=== PATIENT | female | born 1935 | race Caucasian/White ===

== ENCOUNTER 2017-03-06 20:11 | Emergency (ER) | payer MEDICARE, BC ==
--- NOTE | 2017-03-06 20:39 | ERNOTE ---
Medical Problem HPI - General Chief Complaint: General Assessment Time Seen by Provider: 03/06/17 20:38 Source: patient, family - Immun/Allergies/Home Medications Immunizations: IMMUNIZATION HX Immunizations Up to Date Yes History of Influenza Vaccine No Hx Pneumococcal Vaccination No Allergies/Adverse Reactions: Allergies cisapride monohydrate [From Propulsid] Allergy (Unknown, Verified 05/22/16 22:37 ) codeine Allergy (Unknown, Verified 05/22/16 22:37) diphenhydramine HCl [From Benadryl] Allergy (Unknown, Verified 05/22/16 22:37) fish oil Allergy (Unknown, Verified 05/22/16 22:37) ketorolac tromethamine [From Toradol] Allergy (Unknown, Verified 05/22/16 22:37) Other "muscles hurt really bad" meperidine HCl [From Demerol] Allergy (Unknown, Verified 05/22/16 22:37) metoclopramide HCl [From Reglan] Allergy (Unknown, Verified 05/22/16 22:37) metoprolol Allergy (Unknown, Verified 05/22/16 22:37) omeprazole [From Prilosec] Allergy (Unknown, Verified 05/22/16 22:37) omeprazole magnesium [From Prilosec] Allergy (Unknown, Verified 05/22/16 22:37) prochlorperazine edisylate [From Compazine] Allergy (Unknown, Verified 05/22/16 22:37) prochlorperazine maleate [From Compazine] Allergy (Unknown, Verified 05/22/16 22 :37) sumatriptan [From Imitrex] Allergy (Unknown, Verified 05/22/16 22:37) sumatriptan succinate [From Imitrex] Allergy (Unknown, Verified 05/22/16 22:37) ondansetron HCl [From Zofran (as hydrochloride)] Allergy (Verified 05/22/16 22: 37) Nausea lisinopril Adverse Reaction (Mild, Verified 05/22/16 22:37) COUGH Home Medications: HOME MEDICATIONS ALPRAZolam [Xanax] 0.25 mg PO BID PRN 09/05/15 [Last Taken Unknown] Clonidine HCl [Catapres] 0.1 mg PO BID 09/05/15 [Last Taken Unknown] Polyethylene Glycol 3350 [Miralax] 17 gm PO Q2D 09/05/15 [Last Taken Unknown] fentaNYL [Duragesic] 25 mcg TD Q48H 02/04/16 [Last Taken Unknown] - History of Present History Narrative: This is a 81-year-old female with a history of cancer and history of bowel obstruction comes to the emergency department complaining of a diffuse pain all over her entire body. The patient says the symptoms started yesterday. She also says that she feels like her vagina and rectum are going to "fall out". The patient says that when she urinates she has a burning type sensation in her vulvar area. She says there BUT WORSE WHEN SHE URINATES. SHE IS UNABLE TO HAVE A BOWEL MOVEMENT WITHOUT TAKING AN ENEMA. THIS IS BEEN FOR MANY YEARS. SHE DENIES FEVER. SHE DENIES COUGH. HER PAIN IS ALL OVER HER ENTIRE BODY BUT DOES INCLUDE CHEST DISCOMFORT.. THE PATIENT STATES SHE HAS BEEN USING HER MEDICINES SHE IS SUPPOSED TO. The patient says that she has never had symptoms quite like this, the closest she got was when she had a bowel obstruction back in June. The patient has again no cough no shortness of breath no significant lower extremity swelling she has no pleuritic chest pain she has no other complaints Review of Systems - Review of Systems Constitutional: Present: weakness, other EYE: Present: no symptoms reported ENT: Present: no symptoms reported Respiratory: Present: no symptoms reported Cardiology: Present: chest pain - diffuse body pain, other - patient has pain all over including chest pain Gastrointestinal/Abdominal: Present: See HPI, nausea, constipation, abdominal pain Genitourinary: Present: See HPI, dysuria Musculoskeletal: Present: no symptoms reported Skin: Present: no symptoms reported Neurological: Present: no symptoms reported Endocrine: Present: no symptoms reported Hematologic/Lymphatic: Present: no symptoms reported Psych: Present: no symptoms reported All Other Systems: All systems neg except as marked - Patient's Past Medical History Patient History - Medical: Anxiety, Depression, Other Patient History - Cardiac/Respiratory: Hypertension Patient History - Cancer: Lymphoma, Other Patient History - Surgical Procedures: Cholecystectomy, Colonoscopy, Hysterectomy, Other Patient History - Other: None - Family History Mother Family History - Medical: Father Family History - Medical: - Social History Living Situations: home Abuse History: No History of abuse Psych History: Hx of Anxiety, Hx of Depression Smoking Status: Never smoker Have you smoked in the past 12 months: No Do you dip or chew tobacco: No Alcohol Use: none Drug Use: none - Immunizations Immunizations Up to Date: Yes Hx Pneumococcal Vaccination: No History of Influenza Vaccine: No Physical Exam - Physical Exam General Appearance: Present: wd/wn, alert, no apparent distress, other - patient appears anxious Head Exam: Present: normal inspection, no evidence of injury Eye Exam: Normal inspection: bilateral, PERRL: bilateral, EOMI: bilateral Ears, Nose, Throat: Present: normal ENT inspection, normal pharynx Neck: Present: normal inspection, nontender Respiratory: Present: no respiratory distress, normal breath sounds, no accessory muscle use, lungs clear Cardiovascular/Chest: Present: regular rate, rhythm, no murmur, normal peripheral pulses Gastrointestinal/Abdominal: Present: normal bowel sounds, nontender, nondistended, soft, other - no significant point tenderness no rebound or guarding Pelvic Exam: Present: other - external genital exam was performed. The patient has no rashes to the area around the vulva. The right labia minora is slightly erythematous. No vesicles or lesions are noted Back Exam: Present: normal inspection, normal range of motion, no CVA tenderness , other Extremity Exam: Present: normal inspection, non-tender, normal range of motion, no edema Neurological Exam: Present: alert, oriented, normal mood/affect, no motor/ sensory deficits Skin Exam: Present: normal color, warm/dry Lymphatic Exam: Present: no adenopathy ED Progress - Results and Orders Patient's Lab Results:: I have reviewed the patient's lab results. - Vital Signs Patient's Vital Signs:: I have reviewed the patient's vital signs. Vital Signs: Vital Signs 03/06/17 20:18 Temperature 37.1 C Pulse Rate 79 Respiratory 14 Rate Blood Pressure 220/102 O2 Sat by Pulse 100 Oximetry - EKG EKG: NSR EKG read: Interp. by me EKG Comments: Normal sinus rhythm ventricular rate of 71st degree AV block SC interval 204 LVH with associated T-wave abnormalities. Left axis deviation no acute ischemic changes are definite. Comparison to previous EKG dated no significant interval change - X-Ray X-Ray #1 X-Ray: chest Interpretation: Interp. by me X-ray Comments: Chest x-ray no acute cardiopulmonary disease X-Ray #2 X-Ray: chest Interpretation: Interp. by me X-ray Comments: The patient's x-ray after central line shows a central line in good position. Lung markings are seen out to the second rib. I will look at it on the main screen does get final determination of whether there is a tiny pneumothorax. I have looked at the x-ray on the larger film. There is no pneumothorax central line is in good position - CT/Ultrasound CT/Ultrasound Narrative: CT of the abdomen and pelvis shows some nonspecific enlarged lymph nodes diffusely within the mesentery which may reflect chronic inflammatory disease or neoplasm marked osteoporosis no obstruction no free fluid - Progress/Reassessment Chief Complaint: General Assessment Progress:: Improved Progress Note-Subjective: 03/07/17 00:24 The patient has received multiple doses of pain medicine. Central line was placed and fluids were given. Awaiting CAT scan. Says pain is improved. Procedures Comments: Right subclavian triple-lumen catheter was placed under sterile technique. 3 attempts. Good flow all ports. X-ray ordered. Patient tolerated well Plan - Plan Plan: The patient was initially quite hypertensive however after the central line was placed and she received IV pain medicine, her blood pressures come down to 139/ 86. The patient is no longer orthostatic. She is sitting up going to the bathroom with a heart rate of 82. She still has the diffuse pain over her whole body. I do not have an explanation for this but I do not see any emergency medical conditions requiring admission or further management. She is instructed to follow-up with her family doctor Departure - Departure Clinical Impression: Abdominal pain Qualifiers: Abdominal location: generalized Qualified Code(s): R10.84 - Generalized abdominal pain Constipation Qualifiers: Constipation type: unspecified constipation type Qualified Code(s): K59.00 - Constipation, unspecified Disposition: Home self-care Condition: Stable Additional Instructions: As we discussed, the tests and studies done here in the emergency department do not show it cause for your symptoms. This does not mean that there is nothing wrong, it only means that our tests are not adequate to identify the cause next I want you to call your family doctor and set up a follow-up appointment Continue taking all of her medicines as you have been previously. If you develop any new concerning symptoms he should return to the emergency department Referrals: Brennan Espinoza MD [Primary Care Provider] -
[2017-03-06 21:07] LABS: Hemoglobin 13.4 gm/dL (12.5-16.0); Mean Cell Volume 88.6 fl (78-100); Mean Corpuscular Hemoglobin 30.5 pg (27-31); Mean Corpuscular Hgb Conc 34.4 g/dl (32-36); Mean Platelet Volume 10.8 fl (6.0-9.5); Neutrophil # 3.3 K/mm3 (1.3-6.0); Neutrophil % 61.9 % (42-75.0); Platelet Count 185 K/mm3 (150-450); Red Cell Distribution Width 12.3 % (11.5-14.0); White Blood Count 5.4 K/mm3 (4.0-10.5)
[2017-03-06] MEDS ORDERED: DIATRIZOATE MEGLUMINE, SODIUM 30 ML BTL PO ONE (21:20)
[2017-03-06] MEDS ORDERED: DIATRIZOATE MEGLUMINE, SODIUM 30 ML BTL ONE (21:21)
[2017-03-06 21:25] LABS: ALT 19 U/L (19-67); AST 16 U/L (0-48); Albumin * 4.1 gm/dl (3.4-5.0); Alkaline Phosphatase * 76 U/L (50-170); Anion Gap 10.9 mmol/L (6.8-13.8); BUN/Creatinine Ratio 13.5 (9.0-21.6); Bilirubin, Total 0.4 mg/dL (0.0-1.1); Blood Urea Nitrogen 10 mg/dL (3-23); Ca. Corrected For Albumin 8.9 mg/dL (8.4-10.2); Calcium * 9.3 mg/dL (7.9-10.9); Carbon Dioxide 31.6 mmol/L (24-32.6); Chloride 104 mmol/L (97-106); Glucose * 100 mg/dL (70-110); Potassium 3.5 mmol/L (3.4-4.6); Sodium 143 mmol/L (132-142); Troponin I Less than 0.017 ng/ml (0.00-0.10)
[2017-03-06 21:41] LABS: Urine Appearance Clear; Urine Bilirubin Negative (NEGATIVE); Urine Color Yellow; Urine Ketone Negative (NEGATIVE)
[2017-03-06 21:42] LABS: Urine Bacteria None Seen; Urine Blood 25 /ul (NEGATIVE); Urine Nitrite Negative (NEGATIVE); Urine Protein Negative (NEGATIVE); Urine RBC None Seen /hpf (0-5); Urine Specific Gravity 1.005 SP.GR. (1.005-1.010); Urine Urobilinogen Normal (NORMAL); Urine WBC 0-5 /hpf (0-5)
[2017-03-06] MEDS ORDERED: MORPHINE SULFATE 10 MG/ML SYRG IV ONE (22:08)
[2017-03-06] MEDS ORDERED: MORPHINE SULFATE 10 MG/ML SYRG ONE (22:09)
[2017-03-06] MEDS ORDERED: PROMETHAZINE HCL 25 MG in DEXTROSE 5 % IN WATER 50 ML IV ONE ×2 (22:27)
[2017-03-06] MEDS ORDERED: PROMETHAZINE HCL 25 MG/ML AMPUL IM ONE (22:30)
[2017-03-06] MEDS ORDERED: PROMETHAZINE HCL 25 MG/ML AMPUL ONE (22:45)
[2017-03-07] MEDS ORDERED: MORPHINE SULFATE 10 MG/ML SYRG IV ONE (01:41)
[2017-03-07] MEDS ORDERED: NORMAL SALINE 2,000 ML IV ONE (01:41)
[2017-03-07] MEDS ORDERED: MORPHINE SULFATE 10 MG/ML SYRG ONE (01:50)
[2017-03-07 02:25] VITALS: BP 197/77
== END 2017-03-07 03:02 | disposition home or self-care (01) ==
LOC: ER 20:11
PROC: 0JH63WZ Insertion of Totally Implantable Vascular Access Device into Chest Subcutaneous Tissue and Fascia, Percutaneous Approach (ICD-10-PCS; principal; 2017-03-06)
DX: R10.84 Generalized abdominal pain (principal); K59.00 Constipation, unspecified; I10 Essential (primary) hypertension; F41.8 Other specified anxiety disorders; Z85.72 Personal history of non-Hodgkin lymphomas

== ENCOUNTER 2017-07-02 15:17 | Emergency (ER) | payer MEDICARE, BC ==
[2017-07-02] MEDS ORDERED: NORMAL SALINE 1,000 ML IV ONE (15:57)
[2017-07-02] MEDS ORDERED: HYDROmorphone HCL 1 MG/ML DISP.SYRIN IV ONE (15:57)
[2017-07-02] MEDS ORDERED: PROMETHAZINE HCL 12.5 MG in DEXTROSE 5 % IN WATER 50 ML IV ONE ×2 (15:57)
--- NOTE | 2017-07-02 16:02 | ERNOTE ---
Abdominal HPI - General Chief Complaint: Abdominal Pain Time Seen by Provider: 07/02/17 15:47 Source: patient, family Exam Limitations: no limitations - Immun/Allergies/Home Medications Immunizatons: IMMUNIZATION HX Immunizations Up to Date Yes History of Influenza Vaccine No Hx Pneumococcal Vaccination No Allergies/Adverse Reactions: Allergies cisapride monohydrate [From Propulsid] Allergy (Unknown, Verified 07/02/17 15:44 ) codeine Allergy (Unknown, Verified 07/02/17 15:44) diphenhydramine HCl [From Benadryl] Allergy (Unknown, Verified 07/02/17 15:44) fish oil Allergy (Unknown, Verified 07/02/17 15:44) ketorolac tromethamine [From Toradol] Allergy (Unknown, Verified 07/02/17 15:44) Other "muscles hurt really bad" meperidine HCl [From Demerol] Allergy (Unknown, Verified 07/02/17 15:44) metoclopramide HCl [From Reglan] Allergy (Unknown, Verified 07/02/17 15:44) metoprolol Allergy (Unknown, Verified 07/02/17 15:44) omeprazole [From Prilosec] Allergy (Unknown, Verified 07/02/17 15:44) omeprazole magnesium [From Prilosec] Allergy (Unknown, Verified 07/02/17 15:44) prochlorperazine edisylate [From Compazine] Allergy (Unknown, Verified 07/02/17 15:44) prochlorperazine maleate [From Compazine] Allergy (Unknown, Verified 07/02/17 15 :44) sumatriptan [From Imitrex] Allergy (Unknown, Verified 07/02/17 15:44) sumatriptan succinate [From Imitrex] Allergy (Unknown, Verified 07/02/17 15:44) hydromorphone [From Dilaudid] Allergy (Verified 07/02/17 16:44) ondansetron HCl [From Zofran (as hydrochloride)] Allergy (Verified 07/02/17 15: 44) Nausea lisinopril Adverse Reaction (Mild, Verified 07/02/17 15:44) COUGH Home Medications: HOME MEDICATIONS ALPRAZolam [Xanax] 0.25 mg PO BID PRN 09/05/15 [Last Taken Unknown] Clonidine HCl [Catapres] 0.1 mg PO BID 09/05/15 [Last Taken Unknown] Polyethylene Glycol 3350 [Miralax] 17 gm PO Q2D 09/05/15 [Last Taken Unknown] fentaNYL [Duragesic] 25 mcg TD Q48H 02/04/16 [Last Taken Unknown] - History of Present Illness Narrative: Patient presents with lower abdominal pain onset approximately 3 days ago. Pain is moderate in severity and is similar to when she had a bowel obstruction one year ago Timing: constant Quality: moderate Activities at Onset: none Modifying Factors - (Improves): Present: analgesics Associated Symptoms: Present: nausea Prior Abdominal Problems: Present: similar symptoms - with a bowel obstruction Review of Systems - Review of Systems Constitutional: Present: See HPI EYE: Present: no symptoms reported ENT: Present: no symptoms reported Respiratory: Present: no symptoms reported Cardiology: Present: no symptoms reported Gastrointestinal/Abdominal: Present: See HPI Genitourinary: Present: no symptoms reported Musculoskeletal: Present: no symptoms reported Skin: Present: no symptoms reported Neurological: Present: no symptoms reported Endocrine: Present: no symptoms reported Hematologic/Lymphatic: Present: no symptoms reported Psych: Present: no symptoms reported - Patient's Past Medical History Patient History - Medical: Anxiety, Depression, Other - lymphoma causing a bowel obstruction Patient History - Cardiac/Respiratory: Hypertension Patient History - Cancer: Lymphoma, Non Hodgkins Lymphoma, Other Patient History - Surgical Procedures: Cholecystectomy, Colonoscopy, Hysterectomy, Other Patient History - Other: None LMP (females 10-50): Menopausal - Family History Mother Family History - Medical: Family History - Cardiac/Respiratory: No pertinent hx Father Family History - Medical: Family History - Cardiac/Respiratory: Hypertension - Social History Living Situations: alone Abuse History: No History of abuse Psych History: Hx of Anxiety, Hx of Depression Smoking Status: Never smoker Alcohol Use: none Drug Use: none - Immunizations Immunizations Up to Date: Yes Hx Pneumococcal Vaccination: No History of Influenza Vaccine: No Physical Exam - Physical Exam General Appearance: Present: wd/wn, alert, moderate distress Head Exam: Present: normal inspection Eye Exam: Normal inspection: bilateral, PERRL: bilateral Ears, Nose, Throat: Present: normal ENT inspection, H, normal pharynx Neck: Present: normal inspection, nontender Respiratory: Present: no respiratory distress, normal breath sounds, no accessory muscle use, chest nontender, lungs clear Cardiovascular/Chest: Present: regular rate, rhythm, no murmur, normal peripheral pulses Gastrointestinal/Abdominal: Present: nondistended, soft, no organomegaly, tenderness - generalized throughout worse in the right side of the abdomen, abnormal bowel sounds - bowel sounds appear to be somewhat hypoactive Rectal Exam: Present: deferred Back Exam: Present: normal inspection, normal range of motion Extremity Exam: Present: normal inspection, non-tender, no edema, normal range of motion Neurological Exam: Present: alert, oriented, normal mood/affect Skin Exam: Present: normal color, warm/dry Lymphatic Exam: Present: no adenopathy ED Progress - Results and Orders Patient's Lab Results:: I have reviewed the patient's lab results. - Vital Signs Patient's Vital Signs:: I have reviewed the patient's vital signs. Vital Signs: Vital Signs 07/02/17 15:28 Temperature 36.7 C Pulse Rate 71 Respiratory 16 Rate Blood Pressure 186/84 O2 Sat by Pulse 97 Oximetry - X-Ray X-Ray #1 X-Ray: abdomen Interpretation: Reviewed by me - Progress/Reassessment Chief Complaint: Abdominal Pain Plan - Plan Plan: Patient describes a very difficult history with antibiotics and oral antibiotics never work according to her physician. In light of that patient was given 1 g of Rocephin IV piggyback in the emergency department and we will get her arranged for 4 more days of Rocephin 1 g IV piggyback in our [place]. Patient's personal physician will be back in town on and she will follow-up with him then. Patient had not taken her clonidine on her evening dose so we gave her 0.1 mg here. Departure Clinical Impression: UTI (urinary tract infection) Qualifiers: Urinary tract infection type: acute cystitis Hematuria presence: without hematuria Qualified Code(s): N30.00 - Acute cystitis without hematuria - Departure Disposition: Home self-care Condition: Good Instructions: Urinary Tract Infection, Adult, [id number] Additional Instructions: Return to our [place] daily for the next 4 days at 10:00 in the morning for IV antibiotics Referrals: Brennan Espinoza MD [Primary Care Provider] -
[2017-07-02 16:13] LABS: Hematocrit 38.6 % (37.0-47.0); Hemoglobin 13.5 gm/dL (12.5-16.0); Mean Cell Volume 88.9 fl (78-100); Mean Corpuscular Hemoglobin 31.1 pg (27-31); Mean Platelet Volume 10.5 fl (6.0-9.5); Neutrophil # 4.3 K/mm3 (1.3-6.0); Platelet Count 156 K/mm3 (150-450); Red Blood Count 4.34 M/mm3 (4.2-5.4); Red Cell Distribution Width 12.1 % (11.5-14.0); White Blood Count 6.6 K/mm3 (4.0-10.5)
[2017-07-02 16:14] LABS: Urine Appearance Slightly Cloudy; Urine Color Yellow
[2017-07-02] MEDS ORDERED: HYDROmorphone HCL 1 MG/ML DISP.SYRIN ONE (16:16)
[2017-07-02 16:18] LABS: Urine Bilirubin Negative (NEGATIVE); Urine Blood 10 /ul (NEGATIVE); Urine Ketone Negative (NEGATIVE); Urine Nitrite Negative (NEGATIVE); Urine Protein Negative (NEGATIVE); Urine Specific Gravity 1.005 SP.GR. (1.005-1.010); Urine Urobilinogen Normal (NORMAL)
[2017-07-02 16:19] LABS: Urine Bacteria 1+; Urine RBC 0-5 /hpf (0-5); Urine WBC >50 /hpf (0-5)
[2017-07-02 16:25] LABS: BUN/Creatinine Ratio 10.3 (9.0-21.6); Bilirubin, Total 0.4 mg/dL (0.0-1.1); Ca. Corrected For Albumin 8.9 mg/dL (8.4-10.2); Calcium * 9.2 mg/dL (7.9-10.9); Carbon Dioxide 33.4 mmol/L (24-32.6); Magnesium 1.7 mg/dL (1.2-2.8); Potassium 3.4 mmol/L (3.4-4.6)
[2017-07-02] MEDS ORDERED: MORPHINE SULFATE 4 MG/ML SYRG IV ONE (16:49)
[2017-07-02] MEDS ORDERED: MORPHINE SULFATE 4 MG/ML SYRG ONE (16:49)
[2017-07-02] MEDS ORDERED: CLONIDINE HCL 0.1 MG TABLET PO ONE (18:05)
[2017-07-02] MEDS ORDERED: LORazepam 1 MG TABLET PO ONE (18:05)
[2017-07-02] MEDS ORDERED: LORazepam 1 MG TABLET ONE (18:15)
[2017-07-02] MEDS ORDERED: CLONIDINE HCL 0.1 MG TABLET ONE (18:15)
[2017-07-02 18:28] VITALS: BP 199/120
[2017-07-03] MEDS ORDERED: cefTRIAXone SODIUM 1,000 MG in DEXTROSE 5 % IN WATER 50 ML IV PRN ×2 (08:41)
== END 2017-07-02 18:28 | disposition home or self-care (01) ==
LOC: ER 15:17
DX: N30.00 Acute cystitis without hematuria (principal); F41.9 Anxiety disorder, unspecified; Z85.72 Personal history of non-Hodgkin lymphomas